=== PATIENT | female | born 1955 | race Caucasian/White ===

== ENCOUNTER → 2017-07-18 18:44 | Outpatient (CLI) | payer MEDICAID, SELFPAY ==
[2017-07-23 10:22] LABS: HPV APTIMA, High Risk Negative (Negative)
== END ==
PROVIDERS: Family Provider Nurse Practitioner Family; PCP Nurse Practitioner Family; Visit Provider Obstetrics & Gynecology
DX: Z12.4 Encounter for screening for malignant neoplasm of cervix (principal)
CPT/HCPCS: 88175; G0145

== ENCOUNTER → 2019-09-29 13:55 | Outpatient (CLI) | payer MEDICARE, SELFPAY ==
[2019-10-05 14:50] LABS: HPV APTIMA, High Risk Negative (Negative)
== END ==
PROVIDERS: PCP Nurse Practitioner Family; Visit Provider Obstetrics & Gynecology
DX: Z12.4 Encounter for screening for malignant neoplasm of cervix (principal); R87.619 Unspecified abnormal cytological findings in specimens from cervix uteri
CPT/HCPCS: 87624; 88175; G0145